=== PATIENT | male | born 1935 | race Caucasian/White ===

== ENCOUNTER 2018-05-20 13:04 | Inpatient (IN) | payer OTHER ==
[~2018-05-20] VITALS: Ht 172.7 cm; Wt 69.0 kg
[~2018-05-20 13:04] MED LIST: ALBU90OI6 INH; ALBU90OI61 INH; ANORO ELLIPTA1 EACH INH; ASPI81CH PO; ATEN25 PO; ATOR20 PO; Acetaminophen650 M1 PO; BAYER CHEWABLE81 MG; CALCAVITD PO; CEPH500 PO; CILO100; CIPR500 PO; CYAN1000 PO; CYCL10; CYTRA PO; Cytra-2 Oral S473 ML PO; ENOX120I SQ; ENOX30I SC; FISH1000 PO; HYDACE10B PO; HYDACE5325 PO; LORA1 PO; METO50 PO; MIRT15 PO; Norco 10-325 T1 EACH; OMEP20ER PO; PROC10 PO; PSYL5.85P; SERT50 PO; WARF5 PO
[2018-05-20 14:20] LABS: BASOPHILS ABSOLUTE AUTO 0.06 K/mm3 (0.00-0.23); BASOPHILS PERCENT AUTO 1 % (0-2); EOSINOPHILS PERCENT AUTO 4 % (0-6); Hematocrit 37.7 % (37.0-53.0); Hemoglobin 12.2 g/dL (13.5-17.5); IMMATURE GRAN ABSOLUTE AUTO 0.23 K/mm3 (0.00-0.10); IMMATURE GRAN PERCENT AUTO 2 % (0-1); LYMPHOCYTES ABSOLUTE AUTO 3.51 K/mm3 (0.84-5.20); LYMPHOCYTES PERCENT AUTO 35 % (21-46); MONOCYTES ABSOLUTE AUTO 0.65 K/mm3 (0.16-1.47); MONOCYTES PERCENT AUTO 6 % (4-13); Mean Corpuscular HGB 31.7 pg (26.0-34.0); Mean Corpuscular HGB Conc 32.4 g/dL (31.5-36.5); Mean Corpuscular Volume 98 fL (80-100); Mean Platelet Volume 8.5 fL (9.1-12.4); NEUTROPHILS ABSOLUTE AUTO 5.33 K/mm3 (1.96-9.15); NEUTROPHILS PERCENT AUTO 52 % (41-73); Platelet Count 233 K/mm3 (150-400); RDW Coefficient Variation 14.3 % (11.7-14.2); RDW Standard Deviation 50.4 fL (35.1-46.3); Red Blood Cell Count 3.85 M/mm3 (4.30-5.90); White Blood Cell Count 10.18 K/mm3 (4.00-11.30)
[2018-05-20 14:32] LABS: Albumin, Blood 3.6 g/dL (3.4-5.0); Albumin/Globulin Ratio 0.8 (0.8-1.8); Bilirubin, Total 0.3 mg/dL (0.1-1.0); Bun/Creatinine Ratio 7.7 (12.0-20.0); Calcium, Blood 8.9 mg/dL (8.5-10.1); Creatinine, Blood 3.1 mg/dL (0.60-1.20); Globulin, Blood 4.5 g/dL (2.2-4.0); Potassium, Blood 2.9 mmol/L (3.5-5.5); Total Protein, Blood 8.1 g/dL (6.4-8.2)
[2018-05-20] MEDS ORDERED: METO50ER PO (14:33)
[2018-05-20] MEDS ORDERED: LANS15EC PO (14:33)
[2018-05-20] MEDS ORDERED: OMEPRAZOLE MAGN20 MG PO (14:33)
[2018-05-20] MEDS ORDERED: CILO100 (14:33)
[2018-05-20] MEDS ORDERED: MIRT15 PO (14:34)
[2018-05-20] MEDS ORDERED: SERT50 PO (14:34)
[2018-05-20] MEDS ORDERED: ATOR20 PO (14:34)
[2018-05-20] MEDS ORDERED: WARF7.5 PO (14:35)
--- NOTE | 2018-05-20 17:32 | NUR ---
SHIFT SUMMARY PATIENT BROUGHT TO THE FLOOR FROM ER. PATIENT AWIATING FLUIDS. HE WILL GET DINNER TONIGHT. IN ISOLATION TO RULE OUT FLU SHOT. THERE IS NO CONCERNS AT THIS TIME. PATIENT AWAITNG ANY CHANGES. HE ISINDEPENDENT IN THE ROOM, AND HAS TO USE THE WALKER. WILL ASSESS FOR ANY CHANGES AT THIS TIME.
[2018-05-20 17:35] LABS: International Normalized Ratio 0.99; Prothrombin Time Results 10.5 Sec (9.7-11.5)
[2018-05-20 17:43] LABS: Adenovirus Not Detected (NOT DETECT); Bordetella pertussis Not Detected (NOT DETECT); Chlamydophila pneumoniae Not Detected (NOT DETECT); Coronavirus 229E Not Detected (NOT DETECT); Coronavirus HKU1 Not Detected (NOT DETECT); Coronavirus NL63 Not Detected (NOT DETECT); Coronavirus OC43 Not Detected (NOT DETECT); Human Metapneumovirus Not Detected (NOT DETECT); Human Rhinovirus/Enterovirus Not Detected (NOT DETECT); Influenza A Not Detected (NOT DETECT); Influenza A/2009-H1 Not Detected (NOT DETECT); Influenza A/H1 Not Detected (NOT DETECT); Influenza A/H3 Not Detected (NOT DETECT); Influenza B Not Detected (NOT DETECT); Mycoplasma pneumoniae Not Detected (NOT DETECT); Parainfluenza Virus 1 Not Detected (NOT DETECT); Parainfluenza Virus 2 Not Detected (NOT DETECT); Parainfluenza Virus 3 Not Detected (NOT DETECT); Parainfluenza Virus 4 Not Detected (NOT DETECT); Respiratory Syncytial Virus Not Detected (NOT DETECT)
[2018-05-21 04:58] LABS: Hematocrit 32.7 % (37.0-53.0); Hemoglobin 10.6 g/dL (13.5-17.5); Mean Corpuscular HGB 31.6 pg (26.0-34.0); Mean Corpuscular HGB Conc 32.4 g/dL (31.5-36.5); Mean Corpuscular Volume 98 fL (80-100); Mean Platelet Volume 8.5 fL (9.1-12.4); Platelet Count 181 K/mm3 (150-400); RDW Coefficient Variation 14.6 % (11.7-14.2); RDW Standard Deviation 50.7 fL (35.1-46.3); Red Blood Cell Count 3.35 M/mm3 (4.30-5.90)
[2018-05-21 05:11] LABS: International Normalized Ratio 1.02; Prothrombin Time Results 10.8 Sec (9.7-11.5)
[2018-05-21 05:16] LABS: Bun/Creatinine Ratio 7.7 (12.0-20.0); Calcium, Blood 8.5 mg/dL (8.5-10.1); Creatinine, Blood 2.73 mg/dL (0.60-1.20)
--- NOTE | 2018-05-21 07:29 | NUR ---
SHIFT SUMMARY PT SLEPT WELL T/O NIGHT. AOX4. VSS. DENIES N/V OR SOB. REPORTED 5/10 PAIN IN LOWER BACK & WAS MEDICATED 1X W/ULTRAM PER ORDERS. PT HAS BEEN ON RA ALL NIGHT W/SPO2 >90%. UROSTOMY IS PATENT & DRAINING. R FOOT/HEEL HAS A SORE, PICTURE WAS TAKEN & CLEAN DRESSING WAS APPLIED TO WOUND. CALL LIGHT IS IN REACH.
--- NOTE | 2018-05-21 19:37 | NUR ---
SHIFT SUMMARY. A&OX4, SBA TO BATHROOM WITH FWW. PT TOLERATED PHYSICAL THERAPY WELL TODAY. PT REPORTS MILD SOB WITH EXERTION, RA T/O SHIFT, LUNGS WITH WHEEZES T/O AND COARSE IN BASES. PT REPORTS PAIN TO LOWER BACK SECONDARY TO FALL ONE WEEK AGO, PAIN MANAGED WELL WITH CURRENT ORDERS. DENIES N/V. GOOD PO INTAKE. NO NEW CHANGES.
[2018-05-22 05:20] LABS: International Normalized Ratio 1.37; Prothrombin Time Results 14.1 Sec (9.7-11.5)
--- NOTE | 2018-05-22 07:16 | NUR ---
a+o, [place], call light in reach, urostomy emptied, saline locked, room air, walking rounds completed with returning day staff
[2018-05-22] MEDS ORDERED: AZIT250 PO (13:07)
[2018-05-22] MEDS ORDERED: PRED10 PO (13:08)
--- NOTE | 2018-05-22 15:28 | NUR ---
1500 PT DISCHARGED HOME VIA PERSONAL VEHICLE ACCOMPANIED AND DRIVEN BY . PT ESCORTED TO FACILITY ENTRANCE VIA W/C BY DIE MAKER TRIM. D/C PAPERWORK REVIEWED WITH PT AND COPY PROVIDED. IV REMOVED. NO NEW CHANGES.
== END 2018-05-22 15:00 | disposition home or self-care (01) | DRG 189 ==
LOC: ER 13:04 → MEDS 16:04
PROVIDERS: Emergency Medicine; Internal Medicine; Physician Assistant; ADMIT Hospitalist
DX: J96.01 Acute respiratory failure with hypoxia (principal); J44.1 Chronic obstructive pulmonary disease with (acute) exacerbation; N18.4 Chronic kidney disease, stage 4 (severe); R65.10 Systemic inflammatory response syndrome (SIRS) of non-infectious origin without acute organ dysfunction; K21.9 Gastro-esophageal reflux disease without esophagitis; I10 Essential (primary) hypertension; E78.5 Hyperlipidemia, unspecified; F32.9 Major depressive disorder, single episode, unspecified; Z86.718 Personal history of other venous thrombosis and embolism; E86.0 Dehydration; Z87.891 Personal history of nicotine dependence; I12.9 Hypertensive chronic kidney disease with stage 1 through stage 4 chronic kidney disease, or unspecified chronic kidney disease; Z85.51 Personal history of malignant neoplasm of bladder; Z93.6 Other artificial openings of urinary tract status; Z79.01 Long term (current) use of anticoagulants; M54.9 Dorsalgia, unspecified
CPT/HCPCS: 36415; 71045; 80048; 80053; 83605; 85025; 85027; 85610; 87040; 87486; 87581; 87633; 87798; 93005; 93010; 94640; 94760; 96360; 96361; 97116; 97162; 97530; 99285-25; J2920; J3480; J7120